=== PATIENT | female | born 1990 | race Caucasian/White ===

== ENCOUNTER 2017-10-06 12:58 | Emergency (ER) | payer OTHER ==
[~2017-10-06] VITALS: Ht 165.1 cm; Wt 88.5 kg
[~2017-10-06 12:58] MED LIST: ESCITALOPRAM OX20 MG PO; FUROSEMIDE20 M1 PO; LISINOPRIL10 M1 PO; METOPROLOL SUCC50 M2 PO; MIRENA1 EACH; NORTRIPTYLINE
[2017-10-06 13:01] VITALS: BP 160/90
[2017-10-06 13:49] LABS: ABSOLUTE BASOPHIL COUNT 0.1 /CUMM (0.0-0.2); ABSOLUTE EOSINOPHIL COUNT 0 /CUMM (0.0-0.7); ABSOLUTE GRANULOCYTE CT 7.7 /CUMM (1.4-6.5); ABSOLUTE LYMPH COUNT 2.8 /CUMM (1.2-3.4); ABSOLUTE MONOCYTE COUNT 0.4 /CUMM (0.10-0.60); BASOPHIL % 0.6 % (0.0-2.0); EOSINOPHIL % 0.4 % (0-5); GRANULOCYTE % 69.9 % (42.2-75.2); HEMATOCRIT 40.7 % (37-47); MEAN CORPUSCULAR HGB 29.3 PG (27.0-31.0); MEAN CORPUSCULAR HGB CONC 33.5 G/DL (33.0-37.0); MEAN CORPUSCULAR VOLUME 87.2 FL (81.0-99.0); MEAN PLATELET VOLUME 7.9 FL (7.4-10.4); PLATELET COUNT 354 /CUMM (130-400); RBC DISTRIBUTION WIDTH 13.1 % (11.5-14.5); RED BLOOD CELL CT 4.67 /CUMM (4.20-5.40)
[2017-10-06 13:59] LABS: PT 10.8 SEC (9.4-12.5); PTT 28 SEC (25-37)
== END 2017-10-06 13:43 | disposition admitted as inpatient to this hospital (09) ==
LOC: ERH 12:58
PROVIDERS: Physician Assistant
DX: N93.9 Abnormal uterine and vaginal bleeding, unspecified (principal)
CPT/HCPCS: 99281

== ENCOUNTER → 2017-11-04 | Day surgery (SDC) | payer OTHER ==
[~2017-11-04] VITALS: Ht 165.1 cm; Wt 88.0 kg
[~2017-11-04] MED LIST changes: +NEXPLANON68 M1; +TOPROL XL25 M2 PO; +VITAMIN D1000 UNIT PO
[2017-11-04 09:34] LABS: ABSOLUTE BASOPHIL COUNT 0 /CUMM (0.0-0.2); ABSOLUTE EOSINOPHIL COUNT 0.1 /CUMM (0.0-0.7); ABSOLUTE GRANULOCYTE CT 5.5 /CUMM (1.4-6.5); ABSOLUTE LYMPH COUNT 3.3 /CUMM (1.2-3.4); ABSOLUTE MONOCYTE COUNT 0.5 /CUMM (0.10-0.60); BASOPHIL % 0.5 % (0.0-2.0); EOSINOPHIL % 0.7 % (0-5); GRANULOCYTE % 58.6 % (42.2-75.2); HEMATOCRIT 38.9 % (37-47); MEAN CORPUSCULAR HGB 29.7 PG (27.0-31.0); MEAN CORPUSCULAR HGB CONC 34.1 G/DL (33.0-37.0); MEAN CORPUSCULAR VOLUME 86.9 FL (81.0-99.0); MEAN PLATELET VOLUME 7.8 FL (7.4-10.4); PLATELET COUNT 350 /CUMM (130-400); RBC DISTRIBUTION WIDTH 13.4 % (11.5-14.5); RED BLOOD CELL CT 4.48 /CUMM (4.20-5.40); WHITE BLOOD CELL COUNT 9.4 /CUMM (4.8-10.8)
--- NOTE | 2017-11-04 14:41 | Operative Report ---
Operative/Inv Procedure Report Surgery Date: 11/04/17 Name of Procedure: Eua Operative hysteroscopy and Myosure resection of fibroid Pre-Operative Diagnosis: Abnormal uterine bleeding Submucus myoma Post-Operative Diagnosis: same Estimated Blood Loss: scant Surgeon/Window Dresser: Rickey Mujica MD Anesthesia: moderate sedation, block Monitors: Per Anesthesiology IV Fluids: 500 Urine Output: 50 Drains: NA Specimens: Fibroid Complications: none Condition: stable to rr Operative Indication: 27 year old female with AUB and has Nexplanon. Despite the Nexplanon she is with AUB. HSN showed submucus myoma 2 cm right anterior fundal region. Plan was for operative resection of same. Surgical procedure and risks of same outlined to patient. Operative/Procedure Note Note: Pt taken to OR and prepped in usual sterile fashion Time out completed prior to procedure. Placed in dorsal lithotomy position. Bladder drained with wheeler Open ended speculum placed and cervix grasped with single tooth tenaculum. 10 cc of lidocaine with epi was given paracervically. Cx dilated to size 6 with hegar dilators. Operative hysteroscope inserted. using saline as distection medium the uterus was examined. BL cornu seen and one myoma seen. Using the Myosure the myoma was resected without difficulty. Once complete the Myosure was removed as was tenaculum and Speculum. Instrument and lap count correct x 2 Tolerated well and transferred to RR in stable condition. Toradol given intraoperatively for pain. Findings: Cx wnl No vulvar lesions Uterus with normal ostia and myoma 2 cm right anterior fundal. Discharge Disposition: Same Day Admissions Additional Comments: Postoperative expectations reviewed. Pain, spotting and discharge CC: Rickey Mujica MD
== END ==
LOC: STS 03:43
PROVIDERS: Obstetrics & Gynecology
DX: N93.8 Other specified abnormal uterine and vaginal bleeding (principal); D25.0 Submucous leiomyoma of uterus; I10 Essential (primary) hypertension; G47.33 Obstructive sleep apnea (adult) (pediatric)
CPT/HCPCS: 36415; 81025; 88305; J2250